=== PATIENT | male | born 1990 | race American Indian/Alaskan Native ===

== ENCOUNTER 2017-04-09 19:52 | Emergency (ER) | payer SELFPAY ==
[2017-04-09 20:18] VITALS: BP 132/86
== END 2017-04-10 01:30 | disposition left against medical advice (07) ==
LOC: ED 19:52
DX: R30.0 Dysuria (principal); Z53.21 Procedure and treatment not carried out due to patient leaving prior to being seen by health care provider

== ENCOUNTER 2017-10-23 15:46 | Emergency (ER) | payer OTHER ==
[2017-10-23 15:59] VITALS: BP 123/74
--- NOTE | 2017-10-23 16:25 | XRay Report ---
FINAL REPORT EXAM: XR ANKLE 3+V LT HISTORY: injury, pain TECHNIQUE: Three views left ankle PRIORS: None. FINDINGS: No fracture is identified. No dislocation seen. Ankle mortise is intact no evidence of joint space widening. No erosive or degenerative changes are identified. No evidence of joint effusion. IMPRESSION: Negative ankle series
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
== END 2017-10-23 20:20 | disposition home or self-care (01) ==
LOC: ED 15:46
DX: S90.512A Abrasion, left ankle, initial encounter (principal); W22.09XA Striking against other stationary object, initial encounter; Y93.89 Activity, other specified; Y92.89 Other specified places as the place of occurrence of the external cause; Y99.8 Other external cause status